=== PATIENT | male | born 1935 | race Caucasian/White ===

== ENCOUNTER 2016-09-20 10:46 | Day surgery (SDC) | payer OTHER ==
[~2016-09-20] VITALS: Ht 185.4 cm; Wt 113.6 kg
[~2016-09-20 10:46] MED LIST: ALLOPURINOL300 MG PO; COQ-10200 MG PO; FENOFIBRATE160 MG PO; LEVOTHYROXINE50 MCG PO; LISINOPRIL10 MG PO; METOPROLOL TART25 MG PO; NIACIN ER500 MG PO; OMEPRAZOLE20 M1 PO; PRAVASTATIN SOD10 MG PO; SPIRONOLACTONE25 MG PO; TERAZOSIN HCL1 MG PO; WARFARIN SODIUM5 MG PO; [UNRECOGNIZED DRUG - OTHER] PO
--- NOTE | 2016-09-20 15:32 | OPERATIVE REPORT ---
DATE OF SURGERY: 09/20/2016 SURGEON: Jonathan Elliott MD PREOPERATIVE DIAGNOSIS: 1. History of colon polyps POSTOPERATIVE DIAGNOSES: 1. Colon and rectal polyps 2. Solitary ulcer of lower sigmoid PROCEDURE PERFORMED: 1. Colonoscopy with biopsy and forceps polypectomy ANESTHESIA: Total IV general. INDICATIONS: The patient is a 81-year-old man with multiple previous polyps, requiring right hemicolectomy. SURGICAL TECHNIQUE: The patient was taken to the endoscopy suite, where total IV general was administered and the patient was placed in the left lateral decubitus position. A well-lubricated colonoscope was advanced the length of the colon under direct vision. 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 There was an ulcerated lesion noted during insertion of the colonoscope at about 30 cm. There was surrounding erythema and a little tiny small white eschar at the base. The etiology was unclear. The surrounding colon looked completely normal, with no signs of inflammatory or ulcerative changes. A biopsy was taken through this ulcerative tissue and submitted for histopathology. On further withdrawal, at the top of the rectum and also in the rectosigmoid junction at 14-15 cm, there were multiple small sessile polyps, grossly looking more like hyperplastic polyps. These were sampled with bites of the biopsy forceps and submitted for histopathology. The remainder of the colon and rectum were normal, including a retroflexed view of the rectum. The patient left in good condition and no intraoperative complications were encountered.
--- NOTE | 2016-09-20 15:55 | Provider's Discharge Care Plan ---
Problem, Goal, Plan Problem List 1. History of colonic polyps
--- NOTE | 2016-09-20 15:55 | Provider's Discharge Care Plan ---
Problem, Goal, Plan Problem List 1. History of colonic polyps
[2016-09-20 16:24] VITALS: BP 125/63
== END 2016-09-20 16:20 | disposition home or self-care (01) ==
LOC: OR SRH 10:46 → OB SRH 10:49 → OR SRH 11:20
PROVIDERS: Surgery
PROC: 0DBN8ZX Excision of Sigmoid Colon, Via Natural or Artificial Opening Endoscopic, Diagnostic (ICD-10-PCS; principal; 2016-09-20 12:30)
PROC: 0DBP8ZX Excision of Rectum, Via Natural or Artificial Opening Endoscopic, Diagnostic (ICD-10-PCS; principal; 2016-09-20 12:30)
DX: Z12.11 Encounter for screening for malignant neoplasm of colon (principal); D12.7 Benign neoplasm of rectosigmoid junction; K52.9 Noninfective gastroenteritis and colitis, unspecified; K63.3 Ulcer of intestine; Z86.010 Personal history of colon polyps; Z90.49 Acquired absence of other specified parts of digestive tract; Z79.01 Long term (current) use of anticoagulants; I10 Essential (primary) hypertension; I48.91 Unspecified atrial fibrillation